=== PATIENT | male | born 1950 | race Caucasian/White ===

== ENCOUNTER 2016-10-07 10:57 | Inpatient (IN) | payer MEDICARE ==
[~2016-10-07] VITALS: Ht 182.9 cm; Wt 111.8 kg
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
[2016-10-07 11:38] LABS: BASO # 0.1 x10^3/uL (0.0-0.2); BASO % 1 % (0-3); EOS # 0.1 x10^3/uL (0.0-0.7); EOS % 1 % (0-3); HEMATOCRIT 43.6 % (39.0-53.0); HEMOGLOBIN 14.6 g/dL (13.0-17.5); LYMPH # 3.4 x10^3/uL (1.0-4.8); LYMPH % 32 % (24-48); MEAN CORPUSCULAR HEMOGLOBIN 29 pg (25-35); MEAN CORPUSCULAR HGB CONC 33 g/dL (31-37); MEAN CORPUSCULAR VOLUME 87 fL (79-100); MONO # 0.8 x10^3/uL (0.0-1.1); MONO % 8 % (0-9); NEUT # 6.3 x10^3uL (1.8-7.7); NEUT % 59 % (31-73); PLATELET COUNT 295 x10^3/uL (140-400); RED BLOOD COUNT 5.03 x10^6/uL (4.30-5.70); RED CELL DISTRIBUTION WIDTH 13.5 % (11.5-14.5); WHITE BLOOD COUNT 10.7 x10^3/uL (4.0-11.0)
[2016-10-07 11:56] LABS: BILIRUBIN,URINE SMALL (NEG); CLARITY,URINE HAZY; COLOR,URINE AMBER; GLUCOSE,URINE NEG (NEG); NITRITE,URINE NEG (NEG); UROBILINOGEN,URINE 0.2 mg/dL (0.2 mg/dL)
[2016-10-07 11:56] LABS: ALBUMIN 3.2 g/dL (3.4-5.0); ALBUMIN/GLOBULIN RATIO 0.7 (1.0-1.7); CALCIUM 9.2 mg/dL (8.5-10.1); MAGNESIUM 2.3 mg/dL (1.8-2.4); POTASSIUM 4.3 mmol/L (3.5-5.1); TOTAL BILIRUBIN 0.3 mg/dL (0.2-1.0); TOTAL PROTEIN 7.5 g/dL (6.4-8.2)
[2016-10-07] MEDS ORDERED: ACETAMINOPHEN 325 MG TABLET PO PRN ×2 (12:00→15:30)
[2016-10-07] MEDS ORDERED: QUET25TA5 PO (14:37)
[2016-10-07] MEDS ORDERED: CLON0.5T3 PO (14:37)
[2016-10-07] MEDS ORDERED: SERT100T PO (14:37)
[2016-10-07] MEDS ORDERED: MEMA10TA PO (14:37)
[2016-10-07] MEDS ORDERED: TRAZ-90 PO (14:37)
[2016-10-07] MEDS ORDERED: POLY255P PO (14:46)
[2016-10-07] MEDS ORDERED: ACET500T68 PO (14:46)
[2016-10-07] MEDS ORDERED: CARV25TA2 PO (14:46)
[2016-10-07] MEDS ORDERED: LEVO100T5 PO (14:46)
[2016-10-07] MEDS ORDERED: MULT-208 PO (14:46)
[2016-10-07] MEDS ORDERED: OMEP40CA5 PO (14:46)
[2016-10-07] MEDS ORDERED: LOSA50TA6 PO (14:46)
[2016-10-07] MEDS ORDERED: DOXA4TAB3 PO (14:46)
[2016-10-07] MEDS ORDERED: POTA20TA4 PO (14:46)
[2016-10-07] MEDS ORDERED: SUCR1TAB35 PO (14:46)
[2016-10-07] MEDS ORDERED: METHYL SALICYLATE/MENTHOL TOPICAL OINTMENT 29GM TUBE. TP PRN (15:30)
[2016-10-07] MEDS ORDERED: MAG HYDROX/AL HYDROX/SIMETH 30 ML ORAL.SUSP PO PRN (15:30)
[2016-10-07] MEDS ORDERED: MAGNESIUM HYDROXIDE 2,400 MG/30 ML ORAL.SUSP. PO PRN (15:30)
[2016-10-07 15:32] VITALS: BP 135/81
[2016-10-07] MEDS ORDERED: QUEtiapine 25 MG TABLET. PO SCH (16:00)
[2016-10-07] MEDS: CARVEDILOL 25 MG TABLET PO SCH (17:00)
[2016-10-07] MEDS: SUCRALFATE 1 GM TABLET. PO SCH (18:00)
--- NOTE | 2016-10-07 18:16 | EKG ---
[facility] ED [facility] [place] [id number] Test Date: 2016-10-07 Test Time: 12:00:00 Pat Name: MARY SHARPE Department: Room: [address] [place] [address] Gender: M Dock Pumper: : 1950 Requested By: ALFREDA SIERRA Order Number: [id number] Reading MD: Kenneth Wilson Measurements Intervals [place] Rate: 61 P: 0 WI: 160 QRS: 12 QRSD: 88 T: 44 QT: 406 QTc: 410 Interpretive Statements SINUS RHYTHM Electronically Signed On 10-11-2016 8:29:20 CDT by Kenneth Wilson
--- NOTE | 2016-10-07 18:16 | ACF ---
Admission Criteria Forms PSYCHIATRIC DISORDERS Clinical Indications for Inpatient Care (Place 'X' for any and all applicable criteria): Ongoing inpatient care may be needed for 1 or more of the following(1)(2)(3)(4)( 6)(7)(8): [ ]I. Danger to self or others not manageable at lower level of care. [ ]II. Grave disability (eg, inability to perform self care necessary at lower level of care) [X ]III. Agitation or inappropriate behavior interfering with care for primary condition (eg, attempting to discontinue lines or drains prematurely, unable to cooperate with respiratory care) [ ]IV. Severe disability or disorder indicated by ALL of the following: [ ]a) Severe behavioral health disorder-related symptoms or condition indicated by 1 or more of the following: [ ]i) Severe problem with cognition, memory, judgment, or impulse control [ ]ii) Severe clinical manifestations (eg, hallucinations, delusions, other acute psychotic symptoms, shyanne, extreme agitation or anxiety) [ ]b) Patient management at lower level of care is not feasible until acute intervention or modification is initiated. Extended stay beyond goal length of stay for the primary condition may be needed untilALLof the following are present(1)(2)(3)(4)(722)(23): [ ]a) Danger to self or others is absent or manageable at lower level of care [ ]b) Behavior crisis management, including physical or chemical restraints, is required and is not available at a lower level of care. [ ]c) Behavioral symptoms (e.g., agitation, somnolence, inappropriate behavior) are present, and are not manageable at a lower level of care. [ ]d) Patient cannot understand follow-up treatment and crisis plan. [ ]e) Provider and supports are sufficiently available at lower level of care. [ ]f) Patient can participate (e.g., verify absence of plan for harm) and is in needed of monitoring. The original [facility] [employer] content created by [facility] has been revised. The portions of the content which have been revised are identified through the use of italic text, and [facility] has neither reviewed nor approved the modified material. All other unmodified content is copyright [facility]. Please see references footnoted in the original [facility] edition 2015 Admission Criteria Met?: Yes YOUNG ADAMSON Oct 07, 2016 18:16
[2016-10-07] MEDS: clonazePAM 0.5 MG TABLET PO SCH (20:44)
[2016-10-07] MEDS: MEMANTINE 10 MG TABLET. PO SCH (20:44)
[2016-10-07] MEDS: ZIPRASIDONE IM 20 MG VIAL. IM SCH (20:45)
[2016-10-07] MEDS ORDERED: traZODone 100 MG TABLET. PO SCH (21:00)
[2016-10-07] MEDS: ACETAMINOPHEN 500 MG TABLET PO SCH (21:00)
--- NOTE | 2016-10-07 21:33 | PDOC ---
Exam Frederic Demential Exam: Frederic Note: Please also refer to the separate dictated note~for this date of service dictated separately.~Patient seen individually. Discussed the patient with Nursing staff reviewed the chart.~Reviewed interim history and current functioning. Reviewed vital signs,~Labs/ Radiology~and current medications noted below. Continue current treatment with the changes noted in the dictated addendum note Assessment: Vital Signs: Vital Signs Date Time Temp Pulse Resp B/P (MAP) Pulse Ox O2 Delivery O2 Flow Rate FiO2 10/07/16 17:00 54 135/81 10/07/16 15:32 97.8 18 94 Room Air Labs: Laboratory Tests Test 10/07/16 11:22 10/07/16 11:30 White Blood Count 10.7 x10^3/uL (4.0-11.0) Red Blood Count 5.03 x10^6/uL (4.30-5.70) Hemoglobin 14.6 g/dL (13.0-17.5) Hematocrit 43.6 % (39.0-53.0) Mean Corpuscular Volume 87 fL (79-100) Mean Corpuscular Hemoglobin 29 pg (25-35) Mean Corpuscular Hemoglobin Concent 33 g/dL (31-37) Red Cell Distribution Width 13.5 % (11.5-14.5) Platelet Count 295 x10^3/uL (140-400) Neutrophils (%) (Auto) 59 % (31-73) Lymphocytes (%) (Auto) 32 % (24-48) Monocytes (%) (Auto) 8 % (0-9) Eosinophils (%) (Auto) 1 % (0-3) Basophils (%) (Auto) 1 % (0-3) Neutrophils # (Auto) 6.3 x10^3uL (1.8-7.7) Lymphocytes # (Auto) 3.4 x10^3/uL (1.0-4.8) Monocytes # (Auto) 0.8 x10^3/uL (0.0-1.1) Eosinophils # (Auto) 0.1 x10^3/uL (0.0-0.7) Basophils # (Auto) 0.1 x10^3/uL (0.0-0.2) Sodium Level 144 mmol/L (136-145) Potassium Level 4.3 mmol/L (3.5-5.1) Chloride Level 107 mmol/L (98-107) Carbon Dioxide Level 29 mmol/L (21-32) Anion Gap 8 (6-14) Blood Urea Nitrogen 18 mg/dL (8-26) Creatinine 1.0 mg/dL (0.7-1.3) Estimated GFR (Cockcroft-Gault) 75.0 BUN/Creatinine Ratio 18 (6-20) Glucose Level 104 mg/dL (70-99) H Calcium Level 9.2 mg/dL (8.5-10.1) Magnesium Level 2.3 mg/dL (1.8-2.4) Total Bilirubin 0.3 mg/dL (0.2-1.0) Aspartate Amino Transferase (AST) 44 U/L (15-37) H Alanine Aminotransferase (ALT) 35 U/L (16-63) Alkaline Phosphatase 50 U/L (46-116) Total Protein 7.5 g/dL (6.4-8.2) Albumin 3.2 g/dL (3.4-5.0) L Albumin/Globulin Ratio 0.7 (1.0-1.7) L Urine Collection Type Unknown Urine Color Dejah Urine Clarity Hazy Urine pH 5.5 Urine Specific [place] >=1.030 Urine Protein 30 mg/dl (NEG-TRACE) Urine Glucose (UA) Neg mg/dL (NEG) Urine Ketones (Stick) Neg mg/dL (NEG) Urine Blood Neg (NEG) Urine Nitrite Neg (NEG) Urine Bilirubin Small (NEG) Urine Urobilinogen Dipstick 0.2 mg/dL (0.2 mg/dL) Urine Leukocyte Esterase Neg (NEG) Current Medications: Meds: Current Medications Acetaminophen (Tylenol) 650 mg PRN Q6HRS PRN PO PAIN / TEMP; Start 10/07/16 at 12:00 Clonazepam (KlonoPIN) 0.5 mg BID PO Last administered on 10/07/16 20:44; Start 10/07/16 at 21:00 Memantine (Namenda) 10 mg BID PO Last administered on 10/07/16 20:44; Start 10/07/16 at 21:00 Quetiapine Fumarate (SEROquel) 25 mg BID94 PO ; Start 10/07/16 at 16:00; Stop 10/07/16 at 16:00; Status DC Sertraline HCl (Zoloft) 200 mg DAILY PO ; Start 10/08/16 at 09:00 Trazodone HCl (Desyrel) 100 mg QHS PO Last administered on 10/07/16 20:44; Start 10/07/16 at 21:00 Acetaminophen (Tylenol) 1,000 mg TID PO ; Start 10/07/16 at 21:00 Carvedilol (Coreg) 25 mg BIDWMEALS PO ; Start 10/07/16 at 17:00 Doxazosin Mesylate (Cardura) 4 mg DAILY PO ; Start 10/08/16 at 09:00 Levothyroxine Sodium (Synthroid) 100 mcg DAILY06 PO ; Start 10/08/16 at 06:00 Losartan Potassium (Cozaar) 50 mg DAILY PO ; Start 10/08/16 at 09:00 Polyethylene Glycol (miraLAX) 17 gm DAILY PO ; Start 10/08/16 at 09:00 Potassium Chloride (Klor-Con) 20 meq DAILY PO ; Start 10/08/16 at 09:00 Sucralfate (Carafate) 1 gm BIDAFTMEAL PO ; Start 10/07/16 at 18:00 Multivitamins/ Calcium (Thera-M Plus) 1 tab DAILY PO ; Start 10/08/16 at 09:00 Pantoprazole Sodium (Protonix) 40 mg DAILYAC PO ; Start 10/08/16 at 07:30 Ziprasidone (Geodon Im) 20 mg BID IM Last administered on 10/07/16 20:45; Start 10/07/16 at 21:00 Olanzapine (ZyPREXA ZYDIS) 5 mg PRN Q2HR PRN PO PSYCHOSIS Last administered on 10/07/16 20:44; Start 10/07/16 at 15:30 Acetaminophen (Tylenol) 650 mg PRN Q6HRS PRN PO PAIN / TEMP; Start 10/07/16 at 15:30; Stop 10/07/16 at 15:44; Status DC Multi-Ingredient Ointment (Analgesic [place]) 1 jesús PRN QID PRN TP MUSCLE PAIN; Start 10/07/16 at 15:30 Al Hydroxide/Mg Hydroxide (Mylanta Plus Xs) 15 ml PRN AFTMEALHC PRN PO DYSPEPSIA; Start 10/07/16 at 15:30 Magnesium Hydroxide (Milk Of Magnesia) 2,400 mg PRN QHS PRN PO CONSTIPATION; Start 10/07/16 at 15:30 Active Scripts Active Reported Polyethylene Glycol 3350 255 Gm Powder 17 Gm PO DAILY Multi-Day Vitamins (Multivitamin) 1 Each Tablet 1 Tab PO DAILY Carafate (Sucralfate) 1 Gm Tablet 1 Tab PO BIDAFTMEAL Klor-Con M20 (Potassium Chloride) 20 Meq Tab.er.prt 1 Tab PO DAILY Omeprazole 40 Mg Capsule.dr 1 Cap PO DAILY Losartan Potassium 50 Mg Tablet 50 Mg PO DAILY Doxazosin Mesylate 4 Mg Tablet 1 Tab PO DAILY Carvedilol 25 Mg Tablet 1 Tab PO BIDWMEALS Acetaminophen 500 Mg Tablet 2 Tab PO TID Levothyroxine Sodium 100 Mcg Tablet 1 Tab PO DAILY06 Seroquel (Quetiapine Fumarate) 25 Mg Tablet 1 Tab PO BID94 Trazodone Hcl 100 Mg Tablet 1 Tab PO QHS Zoloft (Sertraline Hcl) 100 Mg Tablet 2 Tab PO DAILY Namenda (Memantine Hcl) 10 Mg Tablet 1 Tab PO BID Clonazepam 0.5 Mg Tablet 0.5 Mg PO BID Diagnosis: Problems: (1) Dementia with behavioral disturbance GUANACO MCGHEE MD Oct 07, 2016 21:33
[2016-10-08] MEDS ORDERED: LEVOTHYROXINE 100 MCG TABLET PO SCH (06:00)
[2016-10-08] MEDS ORDERED: PANTOPRAZOLE 40 MG TABLET. PO SCH (07:30)
[2016-10-08] MEDS ORDERED: DOXAZOSIN MESYLATE 4 MG TABLET PO SCH (09:00)
[2016-10-08] MEDS ORDERED: LOSARTAN 50 MG TABLET. PO SCH (09:00)
[2016-10-08] MEDS ORDERED: SERTRALINE 100 MG TABLET. PO SCH (09:00)
[2016-10-08] MEDS ORDERED: MULTIVITAMIN with MINERAL TABLET. PO SCH (09:00)
[2016-10-08] MEDS ORDERED: POTASSIUM CHLORIDE 20 MEQ TABLET.ER. PO SCH (09:00)
[2016-10-08] MEDS ORDERED: POLYETHYLENE GLYCOL 3350 17 GM PACKET. PO SCH (09:00)
[2016-10-08] MEDS: ZIPRASIDONE IM 20 MG VIAL. IM SCH (10:19)
[2016-10-08] MEDS: CARVEDILOL 25 MG TABLET PO SCH ×3 (10:50→17:08)
[2016-10-08] MEDS: SUCRALFATE 1 GM TABLET. PO SCH ×3 (10:51→17:08)
[2016-10-08] MEDS: MEMANTINE 10 MG TABLET. PO SCH (10:52)
[2016-10-08] MEDS: clonazePAM 0.5 MG TABLET PO SCH ×2 (10:52→12:57)
[2016-10-08] MEDS: ACETAMINOPHEN 500 MG TABLET PO SCH ×2 (10:53→14:01)
--- NOTE | 2016-10-08 11:12 | PDOC ---
Exam Frederic Demential Exam: Frederic Note: Please also refer to the separate dictated note~for this date of service dictated separately.~Patient seen individually. Discussed the patient with Nursing staff reviewed the chart.~Reviewed interim history and current functioning. Reviewed vital signs,~Labs/ Radiology~and current medications noted below. Continue current treatment with the changes noted in the dictated addendum note Assessment: Vital Signs: Vital Signs Date Time Temp Pulse Resp B/P (MAP) Pulse Ox O2 Delivery O2 Flow Rate FiO2 10/07/16 17:00 54 135/81 10/07/16 15:32 97.8 18 94 Room Air I&O Intake and Output 10/08/16 07:00 Intake Total 0 ml Balance 0 ml Intake Oral 0 ml Labs: Laboratory Tests Test 10/07/16 11:22 10/07/16 11:30 White Blood Count 10.7 x10^3/uL (4.0-11.0) Red Blood Count 5.03 x10^6/uL (4.30-5.70) Hemoglobin 14.6 g/dL (13.0-17.5) Hematocrit 43.6 % (39.0-53.0) Mean Corpuscular Volume 87 fL (79-100) Mean Corpuscular Hemoglobin 29 pg (25-35) Mean Corpuscular Hemoglobin Concent 33 g/dL (31-37) Red Cell Distribution Width 13.5 % (11.5-14.5) Platelet Count 295 x10^3/uL (140-400) Neutrophils (%) (Auto) 59 % (31-73) Lymphocytes (%) (Auto) 32 % (24-48) Monocytes (%) (Auto) 8 % (0-9) Eosinophils (%) (Auto) 1 % (0-3) Basophils (%) (Auto) 1 % (0-3) Neutrophils # (Auto) 6.3 x10^3uL (1.8-7.7) Lymphocytes # (Auto) 3.4 x10^3/uL (1.0-4.8) Monocytes # (Auto) 0.8 x10^3/uL (0.0-1.1) Eosinophils # (Auto) 0.1 x10^3/uL (0.0-0.7) Basophils # (Auto) 0.1 x10^3/uL (0.0-0.2) Sodium Level 144 mmol/L (136-145) Potassium Level 4.3 mmol/L (3.5-5.1) Chloride Level 107 mmol/L (98-107) Carbon Dioxide Level 29 mmol/L (21-32) Anion Gap 8 (6-14) Blood Urea Nitrogen 18 mg/dL (8-26) Creatinine 1.0 mg/dL (0.7-1.3) Estimated GFR (Cockcroft-Gault) 75.0 BUN/Creatinine Ratio 18 (6-20) Glucose Level 104 mg/dL (70-99) H Calcium Level 9.2 mg/dL (8.5-10.1) Magnesium Level 2.3 mg/dL (1.8-2.4) Iron Level 60 ug/dL (65-175) L Total Iron Binding Capacity 254 ug/dL (250-450) Iron Saturation 24 % (15-34) Total Bilirubin 0.3 mg/dL (0.2-1.0) Aspartate Amino Transferase (AST) 44 U/L (15-37) H Alanine Aminotransferase (ALT) 35 U/L (16-63) Alkaline Phosphatase 50 U/L (46-116) Total Protein 7.5 g/dL (6.4-8.2) Albumin 3.2 g/dL (3.4-5.0) L Albumin/Globulin Ratio 0.7 (1.0-1.7) L Triglycerides Level 101 mg/dL (0-150) Cholesterol Level 158 mg/dL (0-200) LDL Cholesterol, Calculated 103 mg/dL (0-100) H VLDL Cholesterol, Calculated 20 mg/dL (0-40) Non-HDL Cholesterol Calculated 123 mg/dL (0-129) HDL Cholesterol 35 mg/dL (40-60) L Cholesterol/HDL Ratio 4.0 25-Hydroxy Vitamin D Total 38.9 ng/mL (30.0-100.0) Thyroid Stimulating Hormone (TSH) 1.534 uIU/mL (0.358-3.740) Urine Collection Type Unknown Urine Color Dejah Urine Clarity Hazy Urine pH 5.5 Urine Specific [place] >=1.030 Urine Protein 30 mg/dl (NEG-TRACE) Urine Glucose (UA) Neg mg/dL (NEG) Urine Ketones (Stick) Neg mg/dL (NEG) Urine Blood Neg (NEG) Urine Nitrite Neg (NEG) Urine Bilirubin Small (NEG) Urine Urobilinogen Dipstick 0.2 mg/dL (0.2 mg/dL) Urine Leukocyte Esterase Neg (NEG) Current Medications: Meds: Current Medications Acetaminophen (Tylenol) 650 mg PRN Q6HRS PRN PO PAIN / TEMP; Start 10/07/16 at 12:00 Clonazepam (KlonoPIN) 0.5 mg BID PO Last administered on 10/07/16 20:44; Start 10/07/16 at 21:00 Memantine (Namenda) 10 mg BID PO Last administered on 10/07/16 20:44; Start 10/07/16 at 21:00 Quetiapine Fumarate (SEROquel) 25 mg BID94 PO ; Start 10/07/16 at 16:00; Stop 10/07/16 at 16:00; Status DC Sertraline HCl (Zoloft) 200 mg DAILY PO ; Start 10/08/16 at 09:00 Trazodone HCl (Desyrel) 100 mg QHS PO Last administered on 10/07/16 20:44; Start 10/07/16 at 21:00 Acetaminophen (Tylenol) 1,000 mg TID PO Last administered on 10/07/16 21:00; Start 10/07/16 at 21:00 Carvedilol (Coreg) 25 mg BIDWMEALS PO ; Start 10/07/16 at 17:00 Doxazosin Mesylate (Cardura) 4 mg DAILY PO ; Start 10/08/16 at 09:00 Levothyroxine Sodium (Synthroid) 100 mcg DAILY06 PO Last administered on 06:12; Start 10/08/16 at 06:00 Losartan Potassium (Cozaar) 50 mg DAILY PO ; Start 10/08/16 at 09:00 Polyethylene Glycol (miraLAX) 17 gm DAILY PO ; Start 10/08/16 at 09:00 Potassium Chloride (Klor-Con) 20 meq DAILY PO ; Start 10/08/16 at 09:00 Sucralfate (Carafate) 1 gm BIDAFTMEAL PO ; Start 10/07/16 at 18:00 Multivitamins/ Calcium (Thera-M Plus) 1 tab DAILY PO ; Start 10/08/16 at 09:00 Pantoprazole Sodium (Protonix) 40 mg DAILYAC PO ; Start 10/08/16 at 07:30 Ziprasidone (Geodon Im) 20 mg BID IM Last administered on 10/08/16 10:19; Start 10/07/16 at 21:00 Olanzapine (ZyPREXA ZYDIS) 5 mg PRN Q2HR PRN PO PSYCHOSIS Last administered on 10/08/16 06:12; Start 10/07/16 at 15:30 Acetaminophen (Tylenol) 650 mg PRN Q6HRS PRN PO PAIN / TEMP; Start 10/07/16 at 15:30; Stop 10/07/16 at 15:44; Status DC Multi-Ingredient Ointment (Analgesic [place]) 1 jesús PRN QID PRN TP MUSCLE PAIN; Start 10/07/16 at 15:30 Al Hydroxide/Mg Hydroxide (Mylanta Plus Xs) 15 ml PRN AFTMEALHC PRN PO DYSPEPSIA; Start 10/07/16 at 15:30 Magnesium Hydroxide (Milk Of Magnesia) 2,400 mg PRN QHS PRN PO CONSTIPATION; Start 10/07/16 at 15:30 Active Scripts Active Reported Polyethylene Glycol 3350 255 Gm Powder 17 Gm PO DAILY Multi-Day Vitamins (Multivitamin) 1 Each Tablet 1 Tab PO DAILY Carafate (Sucralfate) 1 Gm Tablet 1 Tab PO BIDAFTMEAL Klor-Con M20 (Potassium Chloride) 20 Meq Tab.er.prt 1 Tab PO DAILY Omeprazole 40 Mg Capsule.dr 1 Cap PO DAILY Losartan Potassium 50 Mg Tablet 50 Mg PO DAILY Doxazosin Mesylate 4 Mg Tablet 1 Tab PO DAILY Carvedilol 25 Mg Tablet 1 Tab PO BIDWMEALS Acetaminophen 500 Mg Tablet 2 Tab PO TID Levothyroxine Sodium 100 Mcg Tablet 1 Tab PO DAILY06 Seroquel (Quetiapine Fumarate) 25 Mg Tablet 1 Tab PO BID94 Trazodone Hcl 100 Mg Tablet 1 Tab PO QHS Zoloft (Sertraline Hcl) 100 Mg Tablet 2 Tab PO DAILY Namenda (Memantine Hcl) 10 Mg Tablet 1 Tab PO BID Clonazepam 0.5 Mg Tablet 0.5 Mg PO BID Diagnosis: Problems: (1) Dementia with behavioral disturbance GUANACO MCGHEE MD Oct 08, 2016 11:12
[2016-10-08 15:48] VITALS: BP 144/95
[2016-10-08 17:08] LABS: HEMOGLOBIN A1C 5.4 % (4.8-5.6)
[2016-10-08 18:30] VITALS: BP 128/90
[2016-10-08 19:12] LABS: BASO # 0.1 x10^3/uL (0.0-0.2); BASO % 1 % (0-3); EOS # 0.1 x10^3/uL (0.0-0.7); EOS % 0 % (0-3); HEMATOCRIT 46.4 % (39.0-53.0); HEMOGLOBIN 15.2 g/dL (13.0-17.5); LYMPH # 3.5 x10^3/uL (1.0-4.8); LYMPH % 21 % (24-48); MEAN CORPUSCULAR HEMOGLOBIN 28 pg (25-35); MEAN CORPUSCULAR HGB CONC 33 g/dL (31-37); MEAN CORPUSCULAR VOLUME 86 fL (79-100); MONO # 1.2 x10^3/uL (0.0-1.1); MONO % 7 % (0-9); NEUT # 11.8 x10^3uL (1.8-7.7); NEUT % 71 % (31-73); PLATELET COUNT 356 x10^3/uL (140-400); RED BLOOD COUNT 5.38 x10^6/uL (4.30-5.70); RED CELL DISTRIBUTION WIDTH 13.8 % (11.5-14.5); WHITE BLOOD COUNT 16.7 x10^3/uL (4.0-11.0)
[2016-10-08 19:20] LABS: ALBUMIN 3.6 g/dL (3.4-5.0); ALBUMIN/GLOBULIN RATIO 0.8 (1.0-1.7); CALCIUM 10.4 mg/dL (8.5-10.1); CREATININE 1.7 mg/dL (0.7-1.3); GFR 40.7; TOTAL BILIRUBIN 0.5 mg/dL (0.2-1.0); TOTAL PROTEIN 8.3 g/dL (6.4-8.2)
[2016-10-08 19:24] LABS: POTASSIUM 6.1 mmol/L (3.5-5.1)
[2016-10-08] MEDS ORDERED: ACET325T9 PO (20:19)
[2016-10-08] MEDS ORDERED: MAG30ORA2 PO (20:34)
[2016-10-08] MEDS ORDERED: MAGN2400 PO (20:35)
[2016-10-08] MEDS ORDERED: METH29OI TP (20:36)
[2016-10-08] MEDS ORDERED: OLAN5TAB5 PO (20:38)
[2016-10-08] MEDS ORDERED: PANT40TA5 PO (20:39)
[2016-10-08] MEDS ORDERED: SERT100T8 PO (20:41)
[2016-10-08] MEDS ORDERED: ZIPR20VI IM (20:44)
[2016-10-08 20:54] LABS: % BASOS 1 % (0-3); % LYMPHS 21 % (24-48); % MONOS 8 % (0-10); % SEGS 70 % (35-66)
[2016-10-08 20:55] LABS: OVALOCYTES OCC; PLT ESTIMATE ADEQUATE (ADEQUATE); POLYCHROMASIA SLIGHT
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
--- NOTE | 2016-10-09 01:23 | CONS ---
DATE OF CONSULTATION: 10/08/2016 MEDICAL MANAGEMENT CONSULTATION HISTORY OF PRESENT ILLNESS: The patient is a 66-year-old male patient, a resident at [facility], who was admitted to [facility] on the account of being aggressive. He has tried to go out of the window and apparently masturbating in public areas. It took 4 males to keep him safe. He was so combative today that he was given Geodon intramuscular and was admitted to [facility] for inpatient psychiatric stabilization. The patient was demented and does not really give any useful information. 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 PAST MEDICAL HISTORY: Significant for hypothyroidism, hypertension, gastroesophageal reflux disease, and benign prostatic hypertrophy. PAST SURGICAL HISTORY: Unobtainable. ALLERGIES: HE IS ALLERGIC TO DIPHENHYDRAMINE WELL HYDROCODONE. MEDICATIONS: He is currently on the following medications: Acetaminophen 1000 mg 3 times a day, carvedilol 25 mg twice a day with meals, clonazepam 0.5 mg p.o. b.i.d., doxazosin mesylate 4 mg once a day, levothyroxine sodium 100 mcg once a day, losartan potassium 50 mg once a day, Namenda 10 mg twice a day, multivitamin 1 tablet once a day, omeprazole 40 mg once a day, polyethylene glycol 17 grams daily, potassium chloride 20 mEq once a day, Seroquel 25 mg twice a day, sertraline 200 mg daily, sucralfate 1 gram twice a day, trazodone 100 at bedtime. FAMILY HISTORY: Unobtainable. SOCIAL HISTORY: The patient is a resident at [facility]. No further information available. PHYSICAL EXAMINATION: GENERAL: When I examined him, he was sitting in a chair comfortably, in no apparent distress, pale, but no jaundice, cyanosis or thyromegaly. No jugular venous distention. No limb edema. VITAL SIGNS: Her heart rate was 54, blood pressure 135/81, temperature was 97.8, respiratory rate was 18 and oxygen saturation was 94%. HEAD: Showed normocephalic, atraumatic. NECK: Supple. HEART: Showed normal first and second heart sounds with no gallop, rub or murmur. CHEST: Clear to auscultation. No crepitation or rhonchi. ABDOMEN: Distended, soft. NEUROLOGIC: He is demented, probably has severe visual impairment. All his cranial nerves are intact. EXTREMITIES: He moves his extremities without difficulty, able to ambulate without assistance or assistive devices; however, he was unable to feed himself and has to be fed. LABORATORY DATA: His lab work showed a white cell count of 10,700, hemoglobin 14.6, hematocrit 43.6, MCV 87 and platelet count 295,000. His chemistry showed a serum sodium of 144, potassium 4.3, chloride 107, bicarbonate 29, anion gap of 8, BUN 18, creatinine 1, estimated GFR was 75 mL per minute. His glucose was 104. Calcium was 9.2, magnesium 2.3. His serum iron was 60, total iron binding capacity was 254, iron saturation was %. Total bilirubin, AST, ALT, alkaline phosphatase were normal. Total protein was 7.5, albumin 3.2. Serum triglyceride was 101, total cholesterol was 158, LDL cholesterol was 103, VLDL was 20, HDL cholesterol was 35, and the ratio was 4. His 25-hydroxy vitamin D was 38.9. TSH was . Urinalysis showed the urine was hazy with a pH of 5.5, specific gravity of 1.030. There was a trace of protein. The urine was negative for glucose, ketones, blood, nitrite and leukocyte esterase. IMPRESSION: In summary, this is a 66-year-old male patient, who was [facility] on the account of being aggressive, trying to go out of the window, masturbating in public areas, all this in the background of dementia with behavioral disorder and disturbances. He has multiple medical problems including hypothyroidism, benign prostatic hypertrophy, hypertension, obesity, gastroesophageal reflux disease and degenerative joint disease. All his vital signs seemed to be stable. His labs are within acceptable range. So, all in all, he is medically stable, and I will follow all his lab work that are still pending at the time of this dictation and make any necessary recommendation. Thank you, Dr. Rizzo for allowing me to participate in the care of this patient. ISAC GALLARDO MD DR: JOSE DE JESUS/chasity JOB#: [id number] / [id number]
--- NOTE | 2016-10-09 11:32 | PN ---
DATE: 10/07/2016 PSYCHIATRIC PROGRESS NOTE This is a late entry for 10/07/2016, covers elements not covered in my initial note. SUBJECTIVE: Per nursing report, the patient remains confused, refuses to answer questions, resistive, combative with cares, refused p.o. meals and liquid intake. Repeatedly, fondling himself. REVIEW OF SYSTEMS: No CV, , pulmonary, eye, ENT system symptoms on review. Reliability poor. MENTAL STATUS EXAM: Oriented to himself. Insight, judgment, recent and remote memory, attention, concentration, fund of knowledge poor, consistent with his diagnosis mentioned in my initial note. PLAN: Continue current psychotropics, considered Depakote. Adjust further as clinically indicated. MAN Naina MCGHEE MD DR: DEMETRA/chasity JOB#: [id number] / [id number]
== END 2016-10-08 20:15 | disposition short-term general hospital (02) | DRG 884 ==
LOC: ER 10:57 → EEVIPCON 10:57 → GEROPSY 13:23
PROVIDERS: ADMIT Psychiatry & Neurology Psychiatry; ATTEND Psychiatry & Neurology Psychiatry
DX: F01.51 Vascular dementia, unspecified severity, with behavioral disturbance (principal); F02.81 Dementia in other diseases classified elsewhere, unspecified severity, with behavioral disturbance; E66.9 Obesity, unspecified; E03.9 Hypothyroidism, unspecified; F32.9 Major depressive disorder, single episode, unspecified; Z66 Do not resuscitate; F41.9 Anxiety disorder, unspecified; F63.9 Impulse disorder, unspecified; G30.9 Alzheimer's disease, unspecified; H54.0 Blindness, both eyes; I10 Essential (primary) hypertension; K21.9 Gastro-esophageal reflux disease without esophagitis; N19 Unspecified kidney failure; M19.90 Unspecified osteoarthritis, unspecified site; N40.0 Benign prostatic hyperplasia without lower urinary tract symptoms; Z79.899 Other long term (current) drug therapy; Z88.5 Allergy status to narcotic agent; Z88.8 Allergy status to other drugs, medicaments and biological substances
CPT/HCPCS: 36415; 51701; 80053; 80061; 81003; 82306; 82607; 82947; 83036; 83540; 83550; 83735; 84443; 85007; 85027; 86592; 86593; 93005; J3486; 99285-25

== ENCOUNTER 2016-10-08 21:20 | Inpatient (IN) | payer MEDICARE ==
[~2016-10-08] VITALS: Ht 182.9 cm; Wt 95.3 kg
[~2016-10-08 21:20] MED LIST: ACET325T9 PO; ACET500T68 PO; CARV25TA2 PO; CLON0.5T3 PO; DOXA4TAB3 PO; LEVO100T5 PO; LOSA50TA6 PO; MAG30ORA2 PO; MAGN2400 PO; MEMA10TA PO; METH29OI TP; MULT-208 PO; OLAN5TAB5 PO; OMEP40CA5 PO; PANT40TA5 PO; POLY255P PO; POTA20TA4 PO; QUET25TA5 PO; SERT100T PO; SERT100T8 PO; SUCR1TAB35 PO; TRAZ-90 PO; ZIPR20VI IM
[2016-10-08] MEDS: IV NORMAL SALINE 1,000ML 1,000 ML IV SCH (21:30)
[2016-10-08] MEDS ORDERED: PIP/TAZO PER PHARMACY MC PRN (21:30)
[2016-10-08] MEDS ORDERED: VANCOMYCIN PER PHARMACY MC PRN (21:30)
[2016-10-08] MEDS ORDERED: HALOPERIDOL LACT 5 MG/ML VIAL. IVP PRN (21:30)
[2016-10-08] MEDS ORDERED: ZIPRASIDONE IM 20 MG VIAL. IM ONE (22:00)
[2016-10-08] MEDS ORDERED: PIPERACILLIN/TAZOBACTAM 4.5 GM in IV NORMAL SALINE 50ML 50 ML IV ONE (22:30)
[2016-10-08 23:00] VITALS: BP 123/76
[2016-10-08] MEDS ORDERED: VANCOMYCIN 2 GM in IV NORMAL SALINE 500ML 500 ML IV ONE (23:00)
[2016-10-08] MEDS ORDERED: IV NORMAL SALINE 50ML 50 ML ONE (23:21)
[2016-10-08] MEDS ORDERED: PIPERACILLIN/TAZOBACTAM 4.5 GM VIAL IV ONE (23:21)
[2016-10-08] MEDS ORDERED: VANCOMYCIN 1 GM VIAL. ONE (23:37)
[2016-10-08 23:40] VITALS: BP 97/68
[2016-10-08] MEDS ORDERED: IV NORMAL SALINE 500ML 500 ML ONE (23:49)
[2016-10-09] VITALS (14 sets, daily range): BP systolic 96–156; BP diastolic 53–98
[2016-10-09] MEDS ORDERED: ACETAMINOPHEN 325 MG TABLET PO PRN (00:30)
[2016-10-09] MEDS ORDERED: MAGNESIUM HYDROXIDE 2,400 MG/30 ML ORAL.SUSP. PO PRN (00:45)
[2016-10-09 03:49] LABS: BACTERIA,URINE FEW /HPF (0-FEW); BILIRUBIN,URINE NEG (NEG); CLARITY,URINE HAZY; COLOR,URINE AMBER; GLUCOSE,URINE NEG (NEG); NITRITE,URINE NEG (NEG); RBC,URINE OCC /HPF (0-2); SQUAMOUS EPITHELIAL CELL,UR OCC /LPF; UROBILINOGEN,URINE 0.2 mg/dL (0.2 mg/dL); WBC,URINE OCC /HPF (0-4)
[2016-10-09 03:50] LABS: AMMONIUM BIURATE PRESENT /HPF
[2016-10-09] MEDS ORDERED: PIPERACILLIN/TAZOBACTAM 3.375 GM VIAL IV ONE (05:02)
[2016-10-09] MEDS ORDERED: IV NORMAL SALINE 50ML 50 ML ONE (05:03)
[2016-10-09] MEDS: PIPERACILLIN/TAZOBACTAM 3.375 GM in IV NORMAL SALINE 50ML 50 ML IV SCH ×2 (05:09→12:31)
[2016-10-09] MEDS ORDERED: LEVOTHYROXINE 100 MCG TABLET PO SCH (06:00)
[2016-10-09 06:13] LABS: BASO # 0.1 x10^3/uL (0.0-0.2); BASO % 1 % (0-3); EOS # 0.1 x10^3/uL (0.0-0.7); EOS % 1 % (0-3); HEMATOCRIT 40.7 % (39.0-53.0); HEMOGLOBIN 13.8 g/dL (13.0-17.5); LYMPH # 3.4 x10^3/uL (1.0-4.8); LYMPH % 27 % (24-48); MEAN CORPUSCULAR HEMOGLOBIN 29 pg (25-35); MEAN CORPUSCULAR HGB CONC 34 g/dL (31-37); MEAN CORPUSCULAR VOLUME 86 fL (79-100); MONO % 8 % (0-9); NEUT # 8.1 x10^3uL (1.8-7.7); NEUT % 64 % (31-73); PLATELET COUNT 295 x10^3/uL (140-400); RED BLOOD COUNT 4.75 x10^6/uL (4.30-5.70); RED CELL DISTRIBUTION WIDTH 13.4 % (11.5-14.5); WHITE BLOOD COUNT 12.7 x10^3/uL (4.0-11.0)
[2016-10-09 06:29] LABS: ALBUMIN/GLOBULIN RATIO 0.8 (1.0-1.7); CALCIUM 8.6 mg/dL (8.5-10.1); CREATININE 1.2 mg/dL (0.7-1.3); GFR 60.8; POTASSIUM 3.6 mmol/L (3.5-5.1); TOTAL BILIRUBIN 0.7 mg/dL (0.2-1.0); TOTAL PROTEIN 6.9 g/dL (6.4-8.2)
[2016-10-09] MEDS ORDERED: PANTOPRAZOLE 40 MG TABLET. PO SCH (07:30)
[2016-10-09] MEDS ORDERED: CARVEDILOL 25 MG TABLET PO SCH (08:00)
[2016-10-09] MEDS ORDERED: LOSARTAN 50 MG TABLET. PO SCH (09:00)
[2016-10-09] MEDS ORDERED: PNEUMOC CONJ VACC 23-VALENT 0.5 ML VIAL. VAX IM ONE (09:00)
[2016-10-09] MEDS ORDERED: ACETAMINOPHEN 500 MG TABLET PO SCH (09:00)
[2016-10-09] MEDS ORDERED: MULTIVITAMIN with MINERAL TABLET. PO SCH (09:00)
[2016-10-09] MEDS ORDERED: SUCRALFATE 1 GM TABLET. PO SCH (09:00)
[2016-10-09] MEDS ORDERED: MEMANTINE 10 MG TABLET. PO SCH (09:00)
[2016-10-09] MEDS ORDERED: clonazePAM 0.5 MG TABLET PO SCH (09:00)
[2016-10-09] MEDS ORDERED: ZIPRASIDONE IM 20 MG VIAL. IM SCH (09:00)
[2016-10-09] MEDS ORDERED: POLYETHYLENE GLYCOL 3350 17 GM PACKET. PO SCH (09:00)
[2016-10-09] MEDS ORDERED: SERTRALINE 100 MG TABLET. PO SCH (09:00)
[2016-10-09] MEDS: IV NORMAL SALINE 1,000ML 1,000 ML IV SCH (10:37)
--- NOTE | 2016-10-09 13:39 | RAD ---
Indication elevated white cell count. Assess for occult infection. A single view of the chest was obtained. No prior imaging is available. Heart size is normal. The level of inspiratory effort is somewhat suboptimal. A focal infiltrate is not seen. Pulmonary vasculature is normal. There is no significant pleural fluid and there is no pneumothorax. Visualized bony structures appear grossly intact. IMPRESSION:: No acute or focal process is seen in the chest
[2016-10-09] MEDS ORDERED: DIVALPROEX 125 MG CAP.SPRINK PO SCH (14:00)
--- NOTE | 2016-10-09 18:45 | SSS ---
ADMIT DATE: 10/08/2016 HISTORY OF PRESENT ILLNESS: The patient is a 66-year-old male patient who was transferred from [facility] as he was noted to be tachycardic with heart rate of more than 120. He was also diaphoretic. His lab work showed that he has leukocytosis with a white cell count of 16,700. His potassium is high also at 6.1, with a creatinine of 1.7 and therefore, he was transferred with the possibility of sepsis, although he has no fever documented anywhere and we did actually start him on IV antibiotic in the form of vancomycin and Zosyn. The x-ray could not be done at the time of transfer; however, his urinalysis was unremarkable and we sent blood and urine for culture and sensitivity. PAST MEDICAL HISTORY: Significant for hypothyroidism, hypertension, gastroesophageal reflux disease, and benign prostatic hypertrophy. PAST PSYCHIATRIC HISTORY: Significant for dementia of Alzheimer vascular type, and has been getting increasingly psychotic, agitated, aggressive, was admitted to [facility] for inpatient psychiatric stabilization. ALLERGIES: BENADRYL and HYDROCODONE. SOCIAL HISTORY: The patient is a resident at [facility]. Apparently, he does not smoke, drink alcohol or use any recreational drugs. OBJECTIVE: GENERAL: On arrival to the ICU, he looked well and was clearly in no apparent respiratory distress. In fact, his heart rate was only 53, blood pressure was 141/92, temperature was 97.8, respiratory rate was 18, and oxygen saturation was 95% on room air. HEAD, EYES, EARS, NOSE, AND THROAT: Showed normocephalic, atraumatic. NECK: Supple. HEART: Showed normal first and second heart sounds with no gallop, rub or murmur. CHEST: Clear to auscultation. No crepitation or rhonchi. ABDOMEN: Distended, soft, and nontender. NEUROLOGIC: Neurologically, he is demented; however, all his cranial nerves are intact. EXTREMITIES: He moves his extremities without difficulty. He is able to ambulate without assistance or assistive devices. LABORATORY DATA: His lab work when we transferred him from [facility] showed a white cell count of 16,700, hemoglobin 15, hematocrit 46, MCV 86, and platelet count of 356,000 with normal amount of differential. His serum sodium was 150, potassium 6.1, chloride 112, bicarbonate 25, anion gap of 13, BUN 22, creatinine 1.7, estimated GFR was 41 mL per minute. His glucose was 137. His calcium was 10.4. Total bilirubin, AST, ALT, alkaline phosphatase were normal. Total protein was 8.3, albumin was 3.6. As I stated, we did start him on IV vancomycin and Zosyn. His repeat labs in the ICU showed a white cell count is down to 12,700, hemoglobin 13.8, hematocrit 40, MCV 86, and platelet count 295,000. His chemistry showed a serum sodium of 146, potassium 3.6, chloride 110, bicarbonate 27, anion gap of 10, BUN 22, creatinine 1.2, estimated GFR was 61 mL per minute. His glucose was 109, lactic acid was 1.3. Calcium was 8.6. Total bilirubin, AST, ALT, alkaline phosphatase were normal. Total protein was 6.9, albumin 3. His urinalysis was unremarkable and negative for nitrite and leukocyte esterase, no rbc's, no wbc's, and no bacteria. We did also chest x-ray today, which was basically unremarkable and showed no acute or focal process seen on the chest. I am not really sure, know what exactly what to make the lab work done at the upstairs, but it seems to me that the sample was hemolyzed and a lot of lab work were grossly abnormal that has all normalized when the patient arrived here in the ICU. He is afebrile, hemodynamically stable. He has no documented fever anywhere. His chest x-ray is clear. His urinalysis was unremarkable. There is no obvious site of infection. I think from my point of view, he seemed to be stable to be transferred back to [facility]. ISAC GALLARDO MD DR: JOSE DE JESUS/chasity JOB#: [id number] / [id number]
[2016-10-09] MEDS ORDERED: DOXAZOSIN MESYLATE 4 MG TABLET PO SCH (21:00)
[2016-10-09] MEDS ORDERED: traZODone 100 MG TABLET. PO SCH (21:00)
[2016-10-09] MEDS ORDERED: VANCOMYCIN 1.5 GM in IV NORMAL SALINE 500ML 500 ML IV SCH (23:00)
== END 2016-10-09 17:10 | DRG 872 ==
LOC: ICU 21:20
PROVIDERS: ADMIT Internal Medicine; ATTEND Internal Medicine
DX: A41.9 Sepsis, unspecified organism (principal); E03.9 Hypothyroidism, unspecified; F02.80 Dementia in other diseases classified elsewhere, unspecified severity, without behavioral disturbance, psychotic disturbance, mood disturbance, and anxiety; G30.9 Alzheimer's disease, unspecified; F01.50 Vascular dementia, unspecified severity, without behavioral disturbance, psychotic disturbance, mood disturbance, and anxiety; K21.9 Gastro-esophageal reflux disease without esophagitis; N40.0 Benign prostatic hyperplasia without lower urinary tract symptoms; I10 Essential (primary) hypertension; Z88.5 Allergy status to narcotic agent; Z88.8 Allergy status to other drugs, medicaments and biological substances
CPT/HCPCS: 36415; 71010; 80053; 81001; 83605; 85027; 87040; 87086; 87641; 90732; J1630; J2543; J3370; J3486; J7040; J7030